=== PATIENT | male | born 1960 | race Caucasian/White ===

== ENCOUNTER 2018-04-27 16:19 | Outpatient (CLI) | payer OTHER ==
--- NOTE | 2018-04-27 18:14 | Diagnostic Imaging Report ---
JONEL PHILIPPE [facility] [address] [facility].[address] [id number] Report Submission Date: Apr 27, 2018 4:44:15 PM CDT Patient Study Name: TRUPTI RICHARDS Date: Apr 27, 2018 4:21:25 PM CDT Modality Type: DX Gender: M Description: CHEST : 58 Institution: [facility] Physician: JONEL PHILIPPE Examination: PA and lateral chest. History: Evaluate lung pal. Chronic cough (Hx) Comparison exam: None provided. Findings: PA and lateral views of the chest demonstrates a normal cardiac and mediastinal silhouette. Vascular calcifications involving the aortic arch. No focal infiltrate. No blunting of the costophrenic margins. Osseous structures are appropriate for age. Impression: No acute pulmonary process. Electronically signed on Apr 27, 2018 4:44:15 PM CDT by: Parvez WARD
== END 2018-04-27 16:20 ==
LOC: RAD 16:19
PROVIDERS: ATTEND Physician Assistant
DX: R05 Cough (principal)
CPT/HCPCS: 71046

== ENCOUNTER 2019-08-23 10:50 | Outpatient (CLI) | payer OTHER | END 2019-08-23 10:55 | LOC: LAB 10:50 | PROVIDERS: ATTEND Family Medicine | DX: R39.11 Hesitancy of micturition (principal) | CPT/HCPCS: 36415; 84153 ==